=== PATIENT | female | born 1990 | race Two or more races ===

== ENCOUNTER → 2019-05-21 | Outpatient (CLI) | payer BC ==
[2019-05-21 13:22] LABS: CHLAM PCR NOT DETECTED (NOT DETECT)
[2019-05-24 01:36] LABS: HEPATITS B SURFACE ANTIGEN Negative (Negative)
[2019-05-24 07:04] LABS: HEPATITIS C VIRUS ANTIBODY <0.1 s/co ratio (0.0-0.9)
== END ==
LOC: OD 11:00
PROVIDERS: ATTEND Family Medicine
DX: Z11.3 Encounter for screening for infections with a predominantly sexual mode of transmission (principal)
CPT/HCPCS: 36415; 80074; 86592; 86701; 87491; 87591